=== PATIENT | male | born 1940 | race Caucasian/White ===

== ENCOUNTER 2016-10-18 07:11 | Day surgery (SDC) | payer MEDICARE, OTHER ==
[~2016-10-18 07:11] MED LIST: BALANCED SALT IRRIG SOLN COMB1 500 ML, VANCOMYCIN FOR BSS PLUS 10 MG, GENTAMICIN SULFAT... IO ONE; VANCOMYCIN FOR CATARACT SURGERY MC ONE
[2016-10-18] MEDS ORDERED: IV LACTATED RINGERS SOLUTION 1,000 ML BAG IV ONE (07:26)
[2016-10-18] MEDS ORDERED: CYCLOPENTOLATE 1% OPHT DROP 2 ML BOTTLE ONE (07:33)
[2016-10-18] MEDS ORDERED: CIPROFLOXACIN 0.3% OPHT DROP 2.5 ML BOTTLE ONE (07:33)
[2016-10-18] MEDS ORDERED: FLURBIPROFEN 0.03% OPHT DROP 2.5 ML BOTTLE ONE (07:33)
[2016-10-18] MEDS ORDERED: TROPICAMIDE 1% OPHT DROP 3 ML BOTTLE ONE (07:34)
[2016-10-18] MEDS ORDERED: PHENYLEPHRINE 2.5% OPHT DROP 2 ML BOTTLE ONE (07:34)
[2016-10-18] MEDS ORDERED: TIMOLOL MALEATE 0.5% OPHT DROP 5 ML BOTTLE ONE (07:44)
[2016-10-18] MEDS ORDERED: NEO/POLYMYX B/DEXAME OPHT OINT 3.5 GM TUBE ONE (07:44)
[2016-10-18] MEDS ORDERED: LIDOCAINE-MPF 2% 5 ML VIAL ONE (07:44)
[2016-10-18] MEDS ORDERED: LIDOCAINE HCL-MPF 1% 5 ML VIAL ONE (07:45)
[2016-10-18] MEDS ORDERED: EPINEPHRINE 1 MG/1 ML AMP ONE (07:45)
[2016-10-18] MEDS ORDERED: ACETYLCHOLINE CHLORIDE 1% OPHT 1 EA KIT ONE (07:45)
[2016-10-18] MEDS ORDERED: BUPIVACAINE PF 0.5% 30 ML VIAL ONE (07:45)
[2016-10-18] MEDS ORDERED: BALANCED SALT IRRIG SOLN COMB2 15 ML IRRIG.SOLN ONE (07:45)
[2016-10-18] MEDS ORDERED: TETRACAINE HCL 0.5% OPHT DROP 2 ML BOTTLE ONE (07:45)
[2016-10-18] MEDS ORDERED: HYALURONATE SODIUM 12.8 MG/0.8 ML DISP.SYRIN ONE (07:46)
[2016-10-18] MEDS ORDERED: HYALURONIDASE,OVINE 200 UNITS/ML VIAL ONE (07:46)
[2016-10-18] MEDS ORDERED: HYALURONATE SODIUM 8.5 MG/0.85 ML DISP.SYRIN ONE (07:46)
[2016-10-18] MEDS ORDERED: FENTANYL CITRATE 100 MCG/2 ML AMPUL ONE (08:56)
== END 2016-10-18 10:45 | disposition home or self-care (01) ==
LOC: DS 07:11 → MERGE 08:30 → DS 10:45
PROVIDERS: ATTEND Ophthalmology
DX: H26.9 Unspecified cataract (principal)
CPT/HCPCS: 36415; 66984; 84132; A4663; J0171 ×2; J1580; J3010; J3370 ×2; J3471; J3490 ×3; J7120 ×2; J7321 ×2; V2632